=== PATIENT | male | born 1955 ===

== ENCOUNTER 2023-04-25 05:25 | Day surgery (SDC) | payer OTHER ==
[~2023-04-25] VITALS: Ht 162.6 cm; Wt 82.6 kg
[~2023-04-25 05:25] MED LIST: ATORVASTATIN CA40 MG PO; DILTIAZEM ER360 M1 PO; GRALISE600 MG PO; METFORMIN HCL500 M3 PO; PEPCID40 MG PO; SULINDAC200 MG PO; TERAZOSIN HCL1 M1 PO
== END 2023-04-25 20:30 | disposition home or self-care (01) ==
LOC: CIR.AMB 05:25
PROVIDERS: ATTEND Surgery
DX: K40.20 Bilateral inguinal hernia, without obstruction or gangrene, not specified as recurrent (principal); D17.39 Benign lipomatous neoplasm of skin and subcutaneous tissue of other sites
CPT/HCPCS: 49650; S2900